=== PATIENT | male | born 1950 | race Caucasian/White ===

== ENCOUNTER 2016-11-30 07:40 | Day surgery (SDC) | payer OTHER ==
[2016-11-30] VITALS (12 sets, daily range): BP systolic 123–168; BP diastolic 65–99; PULSE 58–81; RESP 9–20; O2SAT 94–100
[~2016-11-30] VITALS: Ht 177.8 cm; Wt 119.3 kg
[~2016-11-30 07:40] MED LIST: ASCO-294 PO; ASPI-973 PO; CeFAZolin Inj 2 GM in IV Premix 1 EACH IV ONE; FLEC100T2 PO; LOSA50TA37 PO; METO25TA6 PO; THIA100T64 PO
[2016-11-30] MEDS ORDERED: Ondansetron 2 mg/mL 2 mL Inj ONE (07:41)
[2016-11-30] MEDS ORDERED: Propofol 10,000 mCg/mL 20 mL Inj ONE (07:41)
[2016-11-30] MEDS ORDERED: fentaNYL-PF 50 mCg/mL 2 mL Inj ONE (07:41)
[2016-11-30] MEDS ORDERED: Succinylcholine Chloride 20 mg/mL 5 mL Inj ONE (07:41)
[2016-11-30] MEDS: Lactated Ringer's 1,000 ML IV SCH ×3 (07:44→11:46)
[2016-11-30] MEDS ORDERED: Lactated Ringer's 1,000 ML IV SCH (08:53)
[2016-11-30] MEDS ORDERED: Lactated Ringer's 500 ML IV PRN (08:53)
--- NOTE | 2016-11-30 08:53 | PCM.HPANE ---
Patient Data Date of Service: Nov 30, 2016 Surgeon Admitting Provider: Attending Provider:Gato Patel MD Primary Care Physician:Hermes Avalos MD Other Provider:Rebecca Haywood Anesthesia Reason for Visit Left Breast Cancer Ht/WT & BMI Height (Feet): 5 Height (Inches): 10 Weight (Kilograms): 119.3 Body Mass Index 37.00 Allergies Coded Allergies: codeine (Verified Allergy, Unknown, nausea, 11/29/16) Past Anesthesia History Anesthesia History: Positive for:: Fam Anesthesia Reaction (mother has difficulty waking ), Denies:: Anesthesia Reactions, Fam Malignant Hypertherm, Malignant Hyperthermia Diabetes History Hx Diabetes?: No MRSA MRSA: No Medications Blood Thinner: Aspirin Hypertension Medication: Yes Home Meds Incl Beta Zohra: Yes Date Beta Ozhra Taken: Nov 30, 2016 Time Beta Zohra Taken: 544 Reported Medications Ascorbate Calcium (Vitamin C)500 Mg [id number] Mg PO DAILY 11/29/16 Flecainide Acetate 100 Mg Opiofh780 Mg PO DAILY 11/15/16 Metoprolol Tartrate 25 Mg Fozpvv37 Mg PO BID Ref 0 11/15/16 Aspirin 81 Mg Ditszl45 Mg PO DAILY Ref 0 11/15/16 Losartan Potassium 50 Mg Cfrkkq17 Mg PO DAILY 11/15/16 Discontinued Reported Medications Thiamine Mononitrate (Vitamin B-1)100 Mg Grajib92 Mg PO DAILY 11/29/16 History History of ENT Problems?: Yes HEENT History: Positive for:: Cataracts (bilateral ) Hearing Problem TMJ (occ wears nightguards) Denies:: Glaucoma Denture Type: None Teeth Condition: Within Normal Limits Hx of Heart Problems?: Yes Cardiovascular History: Positive for:: Atrial Fibrillation Hypertension Irregular Heartbeat (atrial fib ) Denies:: AICD Heart Murmur Pacemaker Peripheral Vascular Thrombophlebitis Hx of Respiratory Problem?: No Respiratory History: Denies:: Asthma COPD Emphysema Oxygen Administration Pneumonia Tuberculosis Use of C-PAP Machine Hx Neurologic Problems?: Yes Neurological History: Denies:: Alzheimer's Disease CVA Dementia Dizziness Headaches Multiple Sclerosis Parkinson's Disease Seizures TIA Hx of GI Problems?: No Gastrointestinal History: Denies:: Gastroesphageal Reflux Hx of Problems?: No Genitourinary History: Denies:: Kidney Stones Urinary Tract Infection HX of Peritoneal Dialysis: No Male Hx: Positive for:: Testicular Surgery (orchidopexy) Denies:: Prostate Problems Skin History: Denies:: History Skin Disorders? 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 Denies:: Blood Transfusions Hx Diabetes: No Hx Alcohol Use: NoHx Substance Use: NoHave You Smoked inLast 12 mo: No Stop/Bang Treated for Sleep Apnea?: No Do You Have a CPAP Machine?: No S-Snoring: Do You Snore Loudly: No T-Tired: feel tired, fatigued: No O-Obsered: Observed not breath: No P-Blood Pressure: treated: Yes B- Body Mass Index > 35 kg/m2: Yes A- Age over 50: Yes N- Neck Large Circumference: Yes G- Gender Male: Yes CALEB Total Score: 5 CALEB Risk Assessment: High Risk, =/>3 Yes CALEB Category 4 OutPt Procedure: Yes Risk Assessment Category Category 1A: Patient has history of documented sleep apnea, and HAS NOT received any narcotic, sedative or anesthesia administration during this stay. Category 1B: Patient has history of documented sleep apnea, and HAS received any narcotic , sedative or anesthesia administration during this stay Category 2: Patient has SUSPECTED Obstructive Sleep Apnea, and HAS received any narcotic , sedative or anesthesia administration during this stay. Category 3: Patient has SUSPECTED Obstructive Sleep Apnea and HAS NOT received narcotic, sedative or anesthesia administration during this stay. Category 4: Outpatient in Procedural Areas with known sleep apnea or who screen positive for High Risk via the STOP/BANG questionnaire. Exam Exam Vital Signs Vital Signs Date Time Temp Pulse Resp B/P Pulse Ox O2 Delivery O2 Flow Rate FiO2 11/30/16 07:56 35.9 58 16 150/99 100 Room Air General Appearance: Alert, Oriented X3, Cooperative HEENT/AIRWAY: MP 1, Neck Movement (Full), Mouth Opening (Wide) Lungs: Clear to Auscultation, Normal Air Movement Heart: Normal S1, Normal S2 Meds/Labs/Diagnostics Admission Meds Current Medications Lactated Ringer's (Lr) 1,000 ml @ 120 mls/hr Q8H20M IV Last administered on t 07:44; Start 11/30/16 at 05:00; Stop 11/30/16 at 13:19 Labs Labs 11/15 reviewed Plan Impression Patient chart reviewed, patient interviewed and anesthestic plan with risks, benefits, and alternatives discussed, and informed consent obtained. NPO per Anesth. Guidelines: Yes ASA Physical Status: ASA2 Mod Systemic Disease Anesthetic Plan: GA Bene/Risks/Altern/Consents: Yes HP Complete Prior to Induction: Yes Kamlesh Al MD Nov 30, 2016 08:53
[2016-11-30] MEDS ORDERED: EPHEDrine Sulfate 50 mg/mL Inj IVPUSH PRN (08:55)
[2016-11-30] MEDS ORDERED: MetoCLOpramide 5 mg/mL 2 mL Inj IVPUSH PRN (08:55)
[2016-11-30] MEDS ORDERED: Ondansetron 2 mg/mL 2 mL Inj IVPUSH PRN (08:55)
[2016-11-30] MEDS ORDERED: HYDROmorphone 1 mg/mL Inj IVPUSH PRN (08:55)
[2016-11-30] MEDS ORDERED: Phenylephrine 10,000 mCg/mL Inj IVPUSH PRN (08:55)
[2016-11-30] MEDS ORDERED: Dexamethasone 4 mg/mL Inj IVPUSH PRN (08:55)
[2016-11-30] MEDS ORDERED: fentaNYL-PF 50 mCg/mL 2 mL Inj IVPUSH PRN (08:55)
[2016-11-30] MEDS ORDERED: Bupivacaine 0.5%/EPI 50 mL Inj INFILTRATE ONE (09:38)
--- NOTE | 2016-11-30 11:12 | DRSVH ---
PROCEDURE: NM SENTINEL NODE INJECTION ONLY, LEFT BREAST RADIOPHARMACEUTICAL: 0.5 mCi Millipore filtered Tc-99m sulfur colloid. INDICATIONS: left breast cancer PROCEDURE: The indications, alternatives, benefits, risks, and complications of the procedure were explained to the patient. Written informed consent was obtained and placed in the chart. The area around the nip ple was prepped and draped in a sterile fashion. Tc-99m sulfur colloid was injected in the outer edg e of the areola in the left breast. No image was obtained. IMPRESSION: Administration of radiotracer into the left breast periareolar region for intra-operativ e sentinel lymph node localization. Dictated by: Conner Hart M.D. on 11/30/2016 at 11:10 Approved by: Conner Hart M.D. on 11/30/2016 at 11:10
[2016-11-30] MEDS ORDERED: HYDROcodone-APAP 5-325 mg Tablet PO PRN (11:40)
--- NOTE | 2016-11-30 11:40 | PCM.DISURG ---
Surgical Discharge Instruction Date of Service Nov 30, 2016 Dates of Hospitalization Date of Hospital Admission Providers Admitting Physician: Primary Care Physician: Hermes Avalos MD Attending Physician: Gato Patel MD Discharge Diagnosis Discharge Diagnosis Left breast cancer, bilateral gynecomastia Diet Discharge Diet: No restrictions Activity Discharge Activity-General: No lifting >15 pounds for 2 weeks, Other (minimize raising arms above head) Dressing and Incisional Care Dressing Instructions: Dermabond will peel off gradually Hygiene: May shower Follow Up Plan Follow Up Plan With Dr. Patel in surgery clinic in 1 week. Call your provider for: Fever (over 101.5), Discharge @ incision, pus discharge Gato Patel MD Nov 30, 2016 11:39
--- NOTE | 2016-11-30 11:50 | PCM.SURGOP ---
Surgical Operative Report Date of Service: Nov 30, 2016 Pre Operative Diagnosis Left breast cancer, bilateral gynecomastia Post Operative Diagnosis Same Procedure: Bilateral simple mastectomy, left axillary sentinel lymph node biopsy Surgeon and Press Tender Star Signal: Surgeon: Gato Patel MD Assistants: Lamonte Alvarez PA-C Indication for Procedure 66-year-old man who developed a palpable left breast mass in the subareolar region. He also has had a long-standing endocrine disorder, with undescended testes at , having taken hormone and testosterone for many years, with bilateral gynecomastia. He underwent imaging studies which demonstrated a 1.7 cm mass central to the areola in the left breast. Biopsy demonstrated invasive ductal carcinoma, positive for HER-2. He was reluctant to have a Port-A-Cath placed, and decided to wait until after pathologic staging to decide about adjuvant chemotherapy. After discussion of risks and benefits, he agreed to proceed with bilateral simple mastectomy, left axillary sentinel lymph node biopsy. Findings: There were 2 sentinel nodes. The first sentinel node had an ex vivo count of 3375. The second sentinel node had an ex vivo count of 1825. The background count in the left axilla was 200. The left breast tumor was grossly well confined to the breast tissue. Procedure Details Preoperatively, the patient underwent left breast radiotracer injection for sentinel node identification. He was then brought to the operating room where he underwent smooth induction of general endotracheal anesthesia. He was placed in the supine position with the left arm out, and was prepped and draped in wide sterile fashion. Of note, there was an excellent radiotracer signal in the left axilla. A procedural pause was performed according to the SCOAP checklist, and all were found to be in agreement. An elliptical right breast periareolar incision was made, oriented transversely. Skin flaps were raised superiorly and inferiorly. Circumferential dissection was carried out with electrocautery as the skin and subcutaneous tissue was elevated off the underlying breast tissue capsule. Margins of dissection were just inferior to the right clavicle, the midline, the right inframammary crease, and the right anterior axillary line. The right breast was elevated off the chest wall, and pectoralis fascia was resected en bloc. The right axillary tail was divided. The right breast was oriented with suture, and passed off the field for permanent pathology. Because the patient had a strong desire to avoid drain placement after surgery, I elected to quilt down the skin flaps to the pectoralis muscle with interrupted 3-0 Vicryl sutures. The skin incision was closed with interrupted 3-0 Vicryl deep dermal sutures. The skin incision was closed with a running 4-0 Vicryl subcuticular stitch. Right simple mastectomy was performed next through a similar elliptical skin incision, encompassing the nipple areolar complex. Skin flaps were raised superiorly and inferiorly. Circumferential dissection was carried out with electrocautery as the skin and subcutaneous tissue was elevated off the underlying breast capsule. Margins were of dissection were just inferior to the left clavicle, the midline, the left inframammary crease, and the left anterior axillary line. The left breast was then dissected off the chest wall, and pectoralis fascia was resected en bloc. The left axillary tail was divided. The left breast was oriented with suture. Assessment of the axilla revealed a strong radiotracer signal. The left breast was sent for permanent pathology. There was no evidence of pectoralis muscle invasion, and the tumor seemed grossly well confined to the breast parenchyma. The left axillary fascia was incised. Using the gamma probe as a guide, the areas of maximal radiotracer activity were identified and dissected free from the surrounding tissues. There were 2 sentinel nodes. The first sentinel node was dissected free, and ex vivo it had a gamma count of 3375. It was sent for permanent pathology. The second sentinel node was just adjacent to it. It was dissected free, and ex vivo, it had a gamma count of 1825, and it was sent for permanent pathology. The background count in the left axilla was 200. Reevaluation of the left superior skin flap revealed a small amount of residual soft tissue which was asymmetric, so that was sharply dissected free, oriented with suture, and sent for permanent pathology. Hemostasis was adequate. The skin flaps were quilted down to the chest wall with interrupted 3-0 Vicryl sutures. The skin was closed with interrupted deep dermal 3-0 Vicryl sutures. The skin incision was closed with a running 4-0 Vicryl subcuticular stitch. Dermabond was applied to both incisions as a dressing. At the end the case all needle and sponge counts were correct 2. The patient was awakened from anesthesia without difficulty, and taken to the recovery room in satisfactory condition, having tolerated the procedure well. Complications There were no periprocedural complications identified. Surgical Specimen Removed: Yes Specimen sent to Pathology: Yes Surgical Specimen description: Right breast. Left breast. Left axillary sentinel node #1. Left axillary sentinel node #2. Left anterior soft tissue. Anesthetic Plan: GA Grafts, Implants: None Output, Estimated Blood Loss: 25 Blood Administration during moe: No Drains: None Catheters: None copies to: Hermes Avalos MD; Gabriel Coburn Joshua D MD Nov 30, 2016 11:50
--- NOTE | 2016-11-30 13:29 | PCM.ANEP1 ---
Post Anesthesia PACU Phase 1 Assessment Date of Service: Nov 30, 2016 Vital Signs Vital Signs Date Time Temp Pulse Resp B/P Pulse Ox O2 Delivery O2 Flow Rate FiO2 11/30/16 12:30 74 12 123/65 98 Room Air 11/30/16 12:25 36.2 74 12 145/90 96 Room Air 11/30/16 12:15 67 13 158/93 94 Room Air 11/30/16 12:10 36.4 67 10 141/87 94 Room Air 11/30/16 12:05 68 9 164/87 94 Room Air 11/30/16 11:59 70 14 157/94 97 Room Air 11/30/16 11:46 70 17 162/98 100 Room Air 11/30/16 11:41 76 12 162/93 98 Room Air 11/30/16 11:35 81 20 151/95 100 Simple Mask 10 11/30/16 11:30 36 68 20 168/92 100 Simple Mask 10 11/30/16 07:56 35.9 58 16 150/99 100 Room Air Anesthetic Administered: GA Level of Alertness: Awake, talking CHRISTIAN's with Equal Strength: Yes Pain: No Nausea or Vomiting: No CV Function & Hydration Stable: No Airway Device: Oxygen Delivery: Room Air Lungs: Normal Air Movement PACU Phase 2 Assessment Complications: No Follow up Care: No Patient Instructions Provided: N/A Kamlesh Al MD Nov 30, 2016 13:29
--- NOTE | 2016-12-03 07:47 | PATH ---
SURGICAL PATHOLOGY Attending Physician:Raisa Moreira CASE STATUS: Signed Out PATIENT NAME: DRAGAN GOLDBERG PID: [id number] : 1950 DATE COLLECTED:11/30/2016 00:00 SPECIMEN: 1: Breast, Simple Mastectomy (lymph nodes submitted separately) 2: Breast, Simple Mastectomy (lymph nodes submitted separately) 3: Hewitt Lymph Node 4: [place] Lymph Node 5: Breast, Simple Mastectomy (lymph nodes submitted separately) CLINICAL HISTORY: LEFT BREAST CANCER, GYNECOMASTIA 1). RIGHT BREAST 2). LEFT BREAST 3). LEFT AXILLARY SENTINEL NODE #1 4). LEFT AXILLARY SENTINEL NODE #2 5). LEFT ANTERIOR SOFT TISSUE FINAL DIAGNOSIS: 1.RIGHT BREAST, SIMPLE MASTECTOMY SPECIMEN: MALE BREAST WITH FOCAL AREAS OF DUCTAL EPITHELIAL HYPERPLASIA, USUAL TYPE. NEGATIVE FOR ATYPIA. NEGATIVE FOR EVIDENCE OF MALIGNANCY. 2.LEFT BREAST, SIMPLE MASTECTOMY: INVASIVE BREAST CARCINOMA (SEE CAP SUMMARY BELOW). 3. 4.SENTINEL LYMPH NODES, LEFT AXILLA, NUMBERS 1 AND 2: TWO LYMPH NODES NEGATIVE FOR MALIGNANCY (SEE BREAST CANCER SUMMARY BELOW). 5.LEFT ANTERIOR SOFT TISSUE: ADIPOSE TISSUE WITH NO BREAST TISSUE IDENTIFIED, NEGATIVE FOR MALIGNANCY. ICD10 C50.122 CAP CANCER CASE SUMMARY INVASIVE CARCINOMA OF THE BREAST: PROCEDURE: SIMPLE MASTECTOMY LYMPH NODE SAMPLING: TWO SENTINEL LYMPH NODES, NEGATIVE FOR MALIGNANCY SPECIMEN LATERALITY: LEFT TUMOR SITE: CENTRAL BREAST TUMOR SIZE: 2.9 X 2.5 X 2.3 CM. HISTOLOGIC TYPE: INVASIVE DUCTAL CARCINOMA HISTOLOGIC GRADE: MESHA HISTOLOGIC SCORE 9 OF 9 Glandular/Tubular differentiation: SCORE 3 OF 3 Nuclear Pleomorphism: SCORE 3 OF 3 Mitotic Rate: SCORE 3 OF 3 Overall Grade: HIGH GRADE (3 OF 3) TUMOR FOCALITY: SINGLE FOCUS DUCTAL CARCINOMA IN SITU: Size (Extent) of DCIS: SCATTERED MICROSCOPIC FOCI LESS THAN 1mm. Architectural patterns: SOLID Nuclear grade: HIGH GRADE (3 OF 3) Necrosis: ABSENT MACROSCOPIC AND MICROSCOPIC EXTENT OF TUMOR SKIN: NEGATIVE FOR TUMOR NIPPLE: NEGATIVE FOR TUMOR SKELETAL MUSCLE: ABSENT MARGINS INVASIVE CARCINOMA: Anterior: 2.0 CM Posterior: 4.5 CM Superior: 12.1 CM Inferior: 8.2 CM Medial: 6.1 CM Lateral: 8.2 CM DUCTAL CARCINOMA IN SITU: SAME ABOVE (NEGATIVE FOR TUMOR). LYMPH NODES Total number of lymph nodes examined: TWO Number of sentinel lymph nodes examined: TWO Lymph Node Involvement: BOTH LYMPH NODES NEGATIVE FOR TUMOR Method of Evaluation of Hewitt Lymph Nodes: H&E SECTIONS LYMPH-VASCULAR INVASION: NEGATIVE DERMAL LYMPH-VASCULAR INVASION: NEGATIVE PATHOLOGIC STAGING: AJCC, 7th ed., 2010 PRIMARY TUMOR: pT2 REGIONAL LYMPH NODES: pN0 (sn) ANCILLARY STUDIES: Biomarkers Performed Previously on Case: BIOMARKERS PRESUMED TO HAVE BEEN PERFORMED ON PREVIOUS BIOPSY. IF RESULTS NOT AVAILABLE, THEN TESTING CAN BE PERFORMED ON THIS SPECIMEN GROSS DESCRIPTION: The specimens are received in formalin, labeled with the patient's name, and sublabeled as the following: (1) right breast, short sup, long lateral; (2) left breast, sh st superior, long st lateral; (3) left axillary sentinel node #1; (4) left axillary sentinel node #2; (5) left anterior soft tissue. (1) The specimen consists of a right breast (4.7 cm AP, 15.8 cm SI, 12.9 cm ML) partially covered by an ellipse of skin (5.8 cm SI, 12.7 cm ML) with nipple/areola complex (3.2 x 3.2 cm). The axillary tail is absent. The specimen is oriented with 2 black sutures (short-superior, long-lateral). The breast tissue is fatty and densely fibrous within the subareolar region. No nodules, masses or lesions are identified. The skin and nipple/areola complex are lema-white and unremarkable. Ink code: purple-anterior; yellow-posterior; black-superior; orange-inferior; green-medial; blue-lateral. Section code: (1A) nipple; (1B) skin; (1C, 1D) upper outer quadrant; (1E, 1F) lower outer quadrant; (1G, 1H) upper inner quadrant; (1I, 1J) lower inner quadrant. (2) The specimen is consists of a left breast (4.7 cm AP, 18.1 cm SI, 16.7 cm ML) partially covered by an ellipse of skin (7.2 cm SI, 13.8 cm ML) with nipple/areola complex (3.2 x 3.0 cm). The axillary tail is absent. The specimen is oriented with 2 black sutures (short-superior, long-lateral). The specimen is serially sectioned ML into 34 slices with the medial and lateral resection margins abscesses #1 #34 respectively. The breast tissue is fatty and contains demarco-white solid firm well-circumscribed mass (2.9 x 2.5 x 2.3 cm) within slices #15-#19, directly deep to the nipple which closely correlate with the surgical operative notes. The mass is 2.0 cm from the nipple surface, 4.5 cm from the posterior, 12.1 cm from the superior, 8.2 cm from the inferior, 6.1 cm from the medial, and 8.2 cm from the lateral resection margins. The skin and nipple/areola complex are lema-white and unremarkable. Ink code: purple-anterior; yellow-posterior; black-superior; orange-inferior; green-medial; blue-lateral. Section code: (2A) nipple; (2B) skin; (2C) medial resection margin, perpendicularly sectioned, employment representative; (2D) slice #14, tissue adjacent to mass, employment representative; (2E-2F) slice #15, employment representative bisected and submitted AP; (2G) slice #16 employment representative; (2H) slice #17, employment representative; (2I) slice #18, employment representative; (2J) slice #19, employment representative; (2K) slice #20, tissue adjacent to mass, employment representative; (2L) superior and inferior resection margins, employment representative; (2M) lateral resection margin, perpendicularly sectioned, employment representative. (3) The specimen consists of a lymph node (1.7 x 1.2 x 0.7 cm). Section code: (3A-3B) one lymph node, serially sectioned. Specimen is entirely submitted. (4) The specimen consists of a lymph node (1.3 x 1.2 x 0.7 cm). Section code: (4A) one lymph node, serially sectioned. Specimen is entirely submitted. (5) The specimen consists of a piece of adipose tissue (1.3 cm AP, 5.0 cm SI, 9.5 cm ML) with no overlying skin. No localization wire is present. The specimen is oriented with 2 black sutures (short-superior, long-lateral). A localization wire is present. The adipose tissue is lema-yellow lobular and homogenous. No nodules, masses or lesions are identified. Ink code: purple-anterior; yellow-posterior; black-superior; orange-inferior; green-medial; blue-lateral. Section code: (5A-5P) adipose tissue, serially sectioned and submitted ML. Specimen entirely submitted. Note: Approximate total fixation time in formalin-30 hours and 30 minutes using a collection date of November 30, 2016 with no collection time given. 12/01/16 MICRO DESCRIPTION: See diagnosis. ICD-9 CODES: CPT CODES: 1: 89403 2: 99058 3: 23878 4: 29365 5: 79761 Electronically Signed Out Marlo Tello MD [facility] [address], [place] [address] Technical component performed at [facility], [address], [place], [address]
== END 2016-11-30 23:59 | disposition home or self-care (01) ==
LOC: SAS 07:40
PROVIDERS: ATTEND Student in an Organized Health Care Education/Training Program
DX: C50.122 Malignant neoplasm of central portion of left male breast (principal); N62 Hypertrophy of breast; I10 Essential (primary) hypertension; I48.91 Unspecified atrial fibrillation; E29.1 Testicular hypofunction; M19.90 Unspecified osteoarthritis, unspecified site; Z79.82 Long term (current) use of aspirin; Z17.0 Estrogen receptor positive status [ER+]
CPT/HCPCS: 19303; 38525; 38792; A9541; J0330; J0690; J2250; J2405; J3010; J7120